=== PATIENT | male | born 1965 | race Caucasian/White ===

== ENCOUNTER 2020-03-16 05:54 | Outpatient (CLI) | payer OTHER, SELFPAY ==
[2020-03-16 18:34] LABS: SARS-CoV-2 RNA PCR Negative
== END 2020-03-16 05:55 | disposition home or self-care (01) ==
LOC: ANHCOVIDDT 06:00
PROVIDERS: PCP Internal Medicine; Visit Provider Internal Medicine Gastroenterology
DX: Z01.818 Encounter for other preprocedural examination (principal); Z11.59 Encounter for screening for other viral diseases
CPT/HCPCS: 87635; C9803; U0003

== ENCOUNTER 2020-03-18 02:06 | Day surgery (SDC) | payer OTHER, SELFPAY ==
[2020-03-15 10:50] VITALS: BMI 31.8
--- NOTE | 2020-03-18 09:24 | WPDANESEPPF ---
Anes - Initial Pre Proc Eval Procedure: Operation Date: 03/18/20 10:00 Proposed Procedures p Esophagogastroduodenoscopy - Cristian Evans MD Date/Time: 03/18/20 09:24 Surgeon: Cristian Evans MD Pre Op Diagnosis: Dysphagia Patient Data Age: 55 Gender: M Height: 5 ft 8 in Weight: 95 kg Allergies Allergy/AdvReac Type Severity Reaction Status Date / Time Penicillins Allergy Intermediate UNKNOWN Verified 03/18/20 09:24 REACTION gabapentin Allergy STROKE Verified 03/18/20 09:24 LIKE SYMPTOMS Home Medications Medication Instructions Recorded Confirmed Type amlodipine 5 mg PO DAILY PRN 09/12/19 09/19/19 History aspirin [Aspirin Low Dose] 81 mg PO DAILY 09/12/19 03/15/20 History atorvastatin 10 mg PO DAILY 09/12/19 03/15/20 History carvedilol 12.5 mg PO BID 09/12/19 03/15/20 History ergocalciferol (vitamin D2) 50,000 unit PO WEEKLY 09/12/19 03/15/20 History [Vitamin D2] losartan 100 mg PO DAILY 09/12/19 03/15/20 History omeprazole 20 mg PO DAILY 09/12/19 03/15/20 History spironolactone 25 mg PO DAILY 09/12/19 03/15/20 History tramadol 50 mg PO Q6H PRN 09/12/19 09/12/19 History sucralfate 1 g PO DAILY 03/15/20 03/15/20 History Patient hx anesthesia problems: none Family hx anesthesia problems: none [facility] Past Medical History Medical History (Updated 03/18/20 @ 09:24 by Efra Das MD) GERD (gastroesophageal reflux disease) HTN (hypertension) Obesity Surgical History Surgical History S/P appendectomy Anes - Eval Final PreProcedure Day of Procedure 03/18/20 09:24 Patient weight: obese Heart: regular rate and rhythm Lungs: clear to auscultation Airway: Mallampati scale class 1 Neurological: alert and oriented Last oral intake: >/= 8 hours ASA classification: II Emergent: no Anesthetic plan: proceed Anesthesia type and monitoring: general GIVS and standard monitoring Informed Consent: The patient's anesthetic plan and its attendant risks and benefits were discussed with the patient/family/POA. Questions were solicited and answers provided to the satisfaction of the patient/family/POA.
[2020-03-18] MEDS: LACTATED RINGERS 1,000 ML 150 ML IV CONT (09:36)
[2020-03-18 09:37] VITALS: BP 148/98; PULSE 66; RESP 16; TEMP 37.1; O2SAT 99
--- NOTE | 2020-03-18 10:01 | P.HP_ITS ---
History of Present Illness History of Present Illness Consent: Risks, benefits, and alternatives have been discussed and questions answered. Patient agrees to proceed with procedure. Chief complaint: Dysphagia Narrative: Sky Lo Jr. is a 55 year old W male referred for gastroscopy for evaluation of odynophagia for least 3 weeks. This can occur with liquids or solids. He denies any dysphagia. Patient states this pain central part of this chest in the left upper corneal region. He did have cardiac evaluation which was negative. He is on meloxicam and tramadol back pain and Prilosec 20 mg daily. No antibiotics nothing suggest pill induced esophagitis. He has had no viral symptoms to suggest viral esophagitis. He does have a history of heartburn for which he takes Prilosec. He did have an uncle with esophageal cancer. [facility] Past Medical History Medical History GERD (gastroesophageal reflux disease) HTN (hypertension) Obesity Surgical History Surgical History S/P appendectomy Meds Home Medications and Allergies Home Medications Medication Instructions Recorded Confirmed Type amlodipine 5 mg PO DAILY PRN 09/12/19 03/18/20 History aspirin [Aspirin Low Dose] 81 mg PO DAILY 09/12/19 03/15/20 History atorvastatin 10 mg PO DAILY 09/12/19 03/15/20 History carvedilol 12.5 mg PO BID 09/12/19 03/15/20 History ergocalciferol (vitamin D2) 50,000 unit PO WEEKLY 09/12/19 03/15/20 History [Vitamin D2] losartan 100 mg PO DAILY 09/12/19 03/15/20 History omeprazole 20 mg PO DAILY 09/12/19 03/15/20 History spironolactone 25 mg PO DAILY 09/12/19 03/15/20 History tramadol 50 mg PO Q6H PRN 09/12/19 09/12/19 History sucralfate 1 g PO DAILY 03/15/20 03/15/20 History Allergies Allergy/AdvReac Type Severity Reaction Status Date / Time Penicillins Allergy Intermediate UNKNOWN Verified 03/18/20 09:24 REACTION gabapentin Allergy STROKE Verified 03/18/20 09:24 LIKE SYMPTOMS Vital Signs Vital Signs - 24 hr 03/18/20 09:37 Temperature 37.1 C Pulse Rate 66 Respiratory Rate 16 Blood Pressure 148/98 H Pulse Oximetry 99 Exam Const: Orientation/consciousness: patient oriented x3 Resp: Auscultation: clear to auscultation bilaterally Cardio: Rate: regular rate Rhythm: regular rhythm Heart sounds: no murmurs GI: GI Palp: Yes Soft to palpation, No Tenderness to palpation present (GI), Yes No hepatosplenomegaly present and No Palpable mass present Auscultation: normal bowel sounds Neuro: General: patient oriented x3 and no focal motor deficits Extrem: General: no pedal edema Assessment and Plan Additional Plan EGD with possible esophageal dilatation for evaluation of odynophagia
[2020-03-18 10:43] VITALS: BP 94/49; PULSE 62; RESP 16; O2SAT 97
[2020-03-18 10:53] VITALS: BP 94/55; PULSE 65; RESP 17; O2SAT 98
[2020-03-18 11:03] VITALS: BP 115/67; PULSE 67; RESP 19; O2SAT 98
== END 2020-03-18 11:20 | disposition home or self-care (01) ==
PROVIDERS: PCP Internal Medicine; Visit Provider Internal Medicine Gastroenterology
PROC: 0DJ08ZZ Inspection of Upper Intestinal Tract, Via Natural or Artificial Opening Endoscopic (ICD-10-PCS; CPT 43235; principal; 2020-03-18 10:00)
DX: R13.10 Dysphagia, unspecified (principal); K21.0 Gastro-esophageal reflux disease with esophagitis; K29.50 Unspecified chronic gastritis without bleeding; I10 Essential (primary) hypertension; E66.9 Obesity, unspecified; Z68.32 Body mass index [BMI] 32.0-32.9, adult; Z79.82 Long term (current) use of aspirin
CPT/HCPCS: 43239; 87081; 88305; J2704; J7120

== ENCOUNTER 2020-04-26 08:03 | Outpatient (CLI) | payer OTHER, SELFPAY ==
--- NOTE | ~2020-04-26 | XR_ITS ---
EXAMINATION: XR barium swallow DATE: 04/26/2020 08:48 INDICATION: Dysphagia. TECHNIQUE: The patient drank thick barium, gas-producing crystals, and thin barium. Fluoroscopic spot radiographs of the hypopharynx and esophagus were obtained. Fluoroscopy exposure time was 1.4 minut es. A total of 977 images were recorded. COMPARISON: None. FINDINGS: The pharynx is symmetric and without evidence of mass lesion or mucosal irregularity. The e sophagus is normal without mass or stricture. Esophageal motility is normal. There is no hiatal herni a. A single episode of gastroesophageal reflux of a small amount of contrast into the mid to distal e sophagus was able to be elicited with Valsalva. IMPRESSION: 1. Single episode of mild gastroesophageal reflux elicited with Valsalva. Otherwise normal esophagram . Reviewed, dictated and finalized at location A. IMPRESSION: 1. Single episode of mild gastroesophageal reflux elicited with Valsalva. Other yousif normal esophagram.
== END 2020-04-26 08:04 | disposition home or self-care (01) ==
PROVIDERS: PCP Internal Medicine; Visit Provider Internal Medicine Gastroenterology
DX: R13.10 Dysphagia, unspecified (principal)
CPT/HCPCS: 74220

== ENCOUNTER → 2021-07-20 15:45 | Outpatient (CLI) | payer OTHER, SELFPAY ==
--- NOTE | ~2021-07-20 | XR_ITS ---
XR chest 2V DATE: 07/20/2021 16:08 INDICATION: Cough, wheezing, shortness of breath TECHNIQUE: 2 views COMPARISON: None FINDINGS: There is mild cardiomegaly. No hilar or mediastinal enlargement. No pulmonary infiltrate or consolidation, pleural effusion or pulmonary vascular congestion or pneumothorax. IMPRESSION: Mild cardiac megaly; no active pulmonary disease Reviewed, dictated and finalized at location A.
== END ==
PROVIDERS: PCP Nurse Practitioner; Visit Provider Nurse Practitioner
DX: R05 Cough (principal); R06.2 Wheezing; R06.02 Shortness of breath; I51.7 Cardiomegaly
CPT/HCPCS: 71046

== ENCOUNTER → 2023-04-27 08:43 | Outpatient (CLI) | payer OTHER, SELFPAY ==
--- NOTE | ~2023-04-27 | US_ITS ---
Limited Abdominal Sonogram: Real-time sonographic imaging of the right upper quadrant was performed. Clinical History: Abdominal swelling Findings: The liver appears echogenic, with no evidence of mass lesion or bile duct dilatation. Main portal vein demonstrates normal direction of flow. The gallbladder is partially distended, and appea rs normal with no evidence of gallstone or wall thickening. The common bile duct measures 3 mm. The pancreas is largely obscured by bowel gas shadowing. Right kidney measures 10.8 cm in length, without evidence for hydronephrosis. Impression: Diffuse fatty infiltration of the liver. Reviewed, dictated and finalized at location . Impression: Diffuse fatty infiltration of the liver.
--- NOTE | ~2023-04-27 | XR_ITS ---
Clinical Indication: Swelling PA and lateral views of the chest: Comparison: 07/20/2021 Findings: The lungs are clear, without evidence of focal consolidation or pleural effusion. Cardiome diastinal silhouette is within normal limits. Bones and soft tissues are unremarkable. Impression: Normal chest. Reviewed, dictated and finalized at location . Impression: Normal chest.
== END ==
PROVIDERS: PCP Nurse Practitioner; Visit Provider Nurse Practitioner
DX: R19.01 Right upper quadrant abdominal swelling, mass and lump (principal); K76.0 Fatty (change of) liver, not elsewhere classified
CPT/HCPCS: 71046; 76705

== ENCOUNTER → 2023-05-02 11:06 | Outpatient (CLI) | payer OTHER, SELFPAY ==
--- NOTE | ~2023-05-02 | CT_ITS ---
Clinical Indication: Swelling, shortness of breath CT Scan of the Chest with Contrast: Technique: Contiguous sections were acquired throughout the chest after intravenous administration of 75 cc of Omnipaque 350. Dose reduction technique was used on this scan by utilizing automated exposu re control and iterative reconstruction technique. The dose-length product (DLP) was 458.94 mGy-cm. Findings: There is no evidence of any significant mediastinal, hilar or axillary lymphadenopathy. No central pu lmonary embolus identified. There is no evidence of aortic dissection or aneurysm. Minimal pericardia l fluid noted. There is no evidence of pleural effusion. The lungs are clear. No pulmonary nodules or infiltrates are noted. Images through the upper abdomen reveal no abnormalities. Impression: No significant abnormality seen. Reviewed, dictated and finalized at [facility]. Impression: No significant abnormality seen.
[2023-05-02 11:22] LABS: Estimated Glomerular Filt Rate > 60
== END ==
PROVIDERS: PCP Nurse Practitioner; Visit Provider Nurse Practitioner
DX: R06.02 Shortness of breath (principal); R22.2 Localized swelling, mass and lump, trunk
CPT/HCPCS: 71260; Q9967

== ENCOUNTER 2023-12-26 13:10 | Outpatient (CLI) | payer OTHER, SELFPAY ==
--- NOTE | ~2023-12-26 | MR_ITS ---
EXAMINATION: MR brain/brain stem wo/w con DATE: 12/26/2023 14:08 INDICATION: Migraine TECHNIQUE: Magnetic resonance imaging (MRI) of the brain and brainstem was performed without and with 18 mL Multihance intravenous contrast. Sequences included sagittal and axial T1-weighted SE, axial d iffusion-weighted FS SE, axial T2*-weighted GRE, axial T2-weighted FLAIR, and axial T2-weighted FSE. Postcontrast axial and coronal T1-weighted SE was obtained. Apparent diffusion coefficient (ADC) maps were created. COMPARISON: None. FINDINGS: There are no areas of restricted diffusion to suggest acute infarction. No intracranial hemorrhage or abnormal intracranial mass lesion. There are no intraparenchymal signal abnormalities seen on the ot her pulse sequences. The ventricles are symmetric and normal in size. There are no abnormal extra-axi al fluid collections. Flow voids are seen in the cerebral arteries on the T2-weighted sequences consi stent with their expected patency. Visualized orbits and soft tissues are unremarkable. There are no areas of abnormal enhancement on the post contrast images. IMPRESSION: 1. Normal brain. No acute intracranial process or abnormally enhancing lesions. Reviewed, dictated and finalized at location A. [employer]
== END 2023-12-26 13:11 ==
LOC: MICIMG 13:12
PROVIDERS: PCP Nurse Practitioner; Visit Provider Nurse Practitioner
DX: G43.909 Migraine, unspecified, not intractable, without status migrainosus (principal); R41.0 Disorientation, unspecified
CPT/HCPCS: 70553; A9577